=== PATIENT | female | born 1965 | race Hispanic/Latino ===

== ENCOUNTER 2020-09-19 16:16 | Emergency (ER) | payer OTHER ==
[~2020-09-19] VITALS: Ht 162.6 cm; Wt 81.6 kg
[2020-09-19 16:19] VITALS: BP 125/88
[2020-09-19 22:37] VITALS: BP 129/72
[2020-09-19] MEDS ORDERED: LIDOP TD (22:58)
[2020-09-19] MEDS ORDERED: AZIT250T PO (22:58)
[2020-09-19] MEDS ORDERED: KETOROLAC 60 MG VIAL (30MG/ML) IM ONE (23:00)
[2020-09-19] MEDS ORDERED: ACETAMINOPHEN 500 MG TABLET PO ONE (23:00)
[2020-09-19] MEDS ORDERED: DiphenhydrAMINE HCL 50 MG/ML VIAL IM ONE (23:00)
== END 2020-09-19 23:22 | disposition home or self-care (01) ==
LOC: EDH 16:16
DX: U07.1 COVID-19 (principal); J06.9 Acute upper respiratory infection, unspecified; M54.5 Low back pain; R51.9 Headache, unspecified; G89.29 Other chronic pain; F41.9 Anxiety disorder, unspecified; F32.9 Major depressive disorder, single episode, unspecified; Z79.1 Long term (current) use of non-steroidal anti-inflammatories (NSAID)
CPT/HCPCS: 71045; 87635; 87804 ×2; 93005; 96372 ×2; 99285; C9803; J1200; J1885